=== PATIENT | female | born 1955 | race Caucasian/White ===

== ENCOUNTER 2018-02-02 01:37 | Day surgery (SDC) | payer MEDICARE, BC ==
[~2018-02-02] VITALS: Ht 162.6 cm; Wt 88.0 kg
[~2018-02-02 01:37] MED LIST: ATOM60CA4 PO; BUDE10.25 IH; CALC-965 PO; CHOL10005 PO; DONE10TA38 PO; GABA-549 PO; LEVO-3 PO; LEVO150T72 PO; LISI-351 PO; LORA-630 PO; OMEP40CA48 PO; OXY5 PO; ROPI0.5T25 PO; TOLT2CAP PO; TRA50 PO
[2018-02-02 07:27] VITALS: BP 94/81
[2018-02-02] MEDS ORDERED: FAMOTIDINE 20 MG TAB PO ONE (07:45)
[2018-02-02] MEDS ORDERED: PROPOFOL EMUL(*) 10MG/ML 20 ML 20 ML ONE (08:02)
[2018-02-02] MEDS ORDERED: MIDAZOLAM 2 MG/2 ML VIAL ONE (08:02)
[2018-02-02] MEDS ORDERED: DEXAMETHASONE SOD PHOS 10MG/ML ONE (08:02)
[2018-02-02] MEDS ORDERED: ONDANSETRON 4 MG/2 ML VIAL ONE (08:02)
[2018-02-02] MEDS ORDERED: LIDOCAINE MPF 1% 5 ML VIAL ONE (08:02)
[2018-02-02] MEDS ORDERED: fentaNYL CITR 100 MCG/2 ML AMP ONE ×3 (08:02→13:42)
[2018-02-02] MEDS ORDERED: LIDOCAINE/SOD BICARB 8.4% SYR ID ONE (08:45)
[2018-02-02] MEDS ORDERED: ceFAZolin(*) 2GM/D5W 50ML 50 ML IVPB ONE (08:45)
[2018-02-02] MEDS ORDERED: MIDAZOLAM 2 MG/2 ML VIAL IVP PRN (08:45)
[2018-02-02] MEDS ORDERED: NORMOSOL R SOLN(*) 1000 ML BAG 1,000 ML IV PRN (08:45)
[2018-02-02] MEDS ORDERED: CELECOXIB 200 MG CAP PO ONE (08:45)
[2018-02-02] MEDS ORDERED: ROPIVACAINE 0.2% 20 ML VIAL ONE (10:00)
[2018-02-02] MEDS ORDERED: ePHEDrine 25 MG/5 ML DISP.SYR IVP ONE (11:00)
[2018-02-02] MEDS ORDERED: GLYCOPYRROLATE 0.2 MG/ML SDV ONE (11:13)
[2018-02-02] MEDS ORDERED: NS 0.9% IRRIGATION 1000ML PLCT IR ONE (11:49)
[2018-02-02] MEDS ORDERED: TRAM-420 PO (12:30)
[2018-02-02] MEDS ORDERED: KETOROLAC 15 MG/ML VIAL ONE (12:58)
[2018-02-02 14:33] VITALS: BP 104/70
[2018-02-02 14:41] VITALS: BP 109/78
[2018-02-02 14:50] VITALS: BP 107/78
[2018-02-02] MEDS ORDERED: traMADol 50 MG TAB PO ONE (15:10)
--- NOTE | 2018-02-02 20:35 | OPERATIVE REPORT 1 ---
EVENT DATE: February 02, 2018 SURGEON: Chong Gregg MD ANESTHESIOLOGIST: Reinaldo Grajeda MD ANESTHESIA: General LMA anesthesia. [employer]: Chang Spencer PA-C PREOPERATIVE DIAGNOSES 1. 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 2. 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 POSTOPERATIVE DIAGNOSES 1. 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 2. 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 PROCEDURES PERFORMED 1. Right index finger proximal interphalangeal joint arthroplasty. 2. Extensor tendon repair of the proximal interphalangeal joint of the index finger. 3. Trigger finger release of the thumb. 4. Trigger finger release of the middle finger. 5. Trigger finger release of the ring finger. FINDINGS The patient had arthritic changes associated with the PIP joint of the index finger and also triggering fingers of the first, third, and fourth fingers which were amenable for release. ESTIMATED BLOOD LOSS Minimal. DRAINS None. COMPLICATIONS None. IMPLANTS USED Polycarbonate PIP joint implant uncemented and a FiberWire. SPECIMENS None. TOURNIQUET TIME Not applicable. INDICATIONS AND HISTORY This patient is a 62-year-old female who presented to my clinic for evaluation of right hand pain and irritation going on for some time. She had had index finger arthritis going on for some time, and she continued to have pain and irritation associated with this with an irritation associated with the extensor tendon. She wanted to go ahead and do a replacement of this at the same time. We talked to her about the implications of this as well as treatment options associated with this, and she wanted to go ahead with surgery despite other treatment options available. In addition, she also had some triggering of the thumb as well as the middle and ring fingers. I discouraged her from doing those at the same time, but she was insistent on doing all of these at once. I told her there are further complications and swelling associated with multiple surgeries at one time, and she says she was okay with that and understood the risks associated with that, and informed consent was obtained for that also. DESCRIPTION OF PROCEDURE The patient was brought in the operating room. She and the procedure were both verified. She was placed supine on the operating table and induced and intubated by Anesthesia. The right upper extremity was then prepped and draped in the usual fashion. A timeout was observed verifying the correct patient and procedure. After inflation of the tourniquet, I was then able to make an incision over the dorsal aspect of the PIP joint of the index finger. I was able to go through the skin and subcutaneous tissue and then identify where the extensor tendon had a defect in it and then tagged that for later repair. I was able to cut through the proximal portion of the extensor tendon in order to get at the PIP joint itself proper. After doing this, I then was able to remove this and then go all the way down to the sagittal bands on each side. I was then able to cut the distal aspect of the proximal phalanx in order to remove this small portion of this. I was then able to prep the rest of the distal aspect of the proximal phalanx in accordance with the implant and made the small chamfer cut after broaching up to a size 20 for the sizing. This was then followed by preparation of the middle phalanx in the distal portion. I was then able to bur off the cartilage on this area and then make a small poke hole. I verified on C-arm images that everything was essentially placed within the canal and then was able to broach up to a 20 on this one also. Once I was able to do this, I was then able to trial components. Everything seemed to be in good position. I had no signs of problems or issues associated with them, and so therefore these were the final components chosen. Once I made two drill holes in the middle phalanx in order to repair the extensor slip, I then passed a FiberWire stitch through this area. This was followed by implementation of the 20 on each side for the distal and proximal of the polycarbonate PIP replacement, and I was able to then re-articulate these. This had good flexion and extension associated with it and tension associated with it. I then repaired the extensor tendon using 2- 0 FiberWire through the extensor slip and all the way down through the extensor tendon in order to get a good repair. This had excellent tension associated with it and no signs of instability. I then irrigated with copious amounts of saline, then closed the skin using a 4-0 nylon. I then turned the hand over to the volar side and then released the third and fourth trigger fingers in one incision through the middle portion of the palm. This was taken through the skin and subcutaneous tissue until I was able to identify the A1 pulleys over the flexor tendons on each side. I then released the A1 dougie and the leading edge of the A2 dougie and then released proximally. She did have a lot of synovitis associated with each side of the tendons, but I was able to release these, and then there were no signs of catching or locking associated with the tendons with flexion and extension of the fingers. I then irrigated those with copious amounts of saline and then closed those with a 4-0 nylon also. I then turned attention to the thumb where I was able to make a small incision in the base of the thumb. I took it through the skin and subcutaneous tissue once again and identified the A1 dougie in this area. Once I identified the A1 dougie, I was able to release proximally up towards the A2 dougie in this area and then freed up the tendon. I then released it a little bit distally through the A1 dougie itself proper and into the leading edge of the A2 dougie on this side also. I then irrigated with copious amounts of saline on this. There were no signs of catching or locking associated with this tendon. The tendon seemed freed, so therefore we closed with 4-0 nylon in an interrupted fashion. I then anesthetized each wound with lidocaine and ropivacaine. We then dressed them with Xeroform gauze, 4 x 4's, and a soft dressing. We then put a volar splint on for the index finger, incorporating the other fingers inside of it. The patient was then awakened, extubated, and transferred to PACU in stable condition after the tourniquet was let down after 75 minutes. JEFF
== END 2018-02-02 14:29 | disposition home or self-care (01) ==
LOC: OR 01:37
PROVIDERS: ATTEND Orthopaedic Surgery
DX: M13.841 Other specified arthritis, right hand (principal); S66.300A Unspecified injury of extensor muscle, fascia and tendon of right index finger at wrist and hand level, initial encounter; M65.311 Trigger thumb, right thumb; M65.331 Trigger finger, right middle finger; M65.341 Trigger finger, right ring finger
CPT/HCPCS: 26055; 26535; 76000; A4565; A9270; J1100; J1885; J2001; J2250; J2405; J2704; J2795; J3010; J3490; J0690